=== PATIENT | female | born 1965 | race Caucasian/White ===

== ENCOUNTER 2020-10-07 10:14 | Outpatient (CLI) | payer OTHER, SELFPAY ==
--- NOTE | ~2020-10-07 | XR_ITS ---
XR chest 2V DATE: 10/07/2020 11:02 INDICATION: Hypertension. Back pain. TECHNIQUE: 2 views COMPARISON: 05/31/2015 PA and lateral chest FINDINGS: Normal heart size. No hilar or mediastinal enlargement. No pulmonary infiltrate or consolidation, pleural effusion or pulmonary vascular congestion or pneumo thorax. There is prominent thoracolumbar scoliosis. Status post cholecystectomy. IMPRESSION: No active cardiopulmonary disease Prominent thoracolumbar scoliosis Status post cholecystectomy Reviewed, dictated and finalized at location B.
== END 2020-10-07 10:15 | disposition home or self-care (01) ==
PROVIDERS: PCP Internal Medicine; Visit Provider Internal Medicine
DX: M54.9 Dorsalgia, unspecified (principal); I10 Essential (primary) hypertension
CPT/HCPCS: 71046

== ENCOUNTER 2021-01-09 02:06 | Day surgery (SDC) | payer OTHER, SELFPAY ==
[2020-12-29 10:41] VITALS: BMI 28.4
--- NOTE | 2021-01-06 18:24 | WPDANESEPPF ---
Anes - Initial Pre Proc Eval Procedure: Operation Date: 01/09/21 09:30 Proposed Procedures p Screening Colonoscopy - Ramón Chew MD Date/Time: 01/06/21 18:24 Surgeon: Ramón Chew MD Pre Op Diagnosis: neoplasm screening Patient Data Age: 55 Gender: F Height: 1.55 m Weight: 68.2 kg Allergies Allergy/AdvReac Type Severity Reaction Status Date / Time No Known Allergies Allergy Verified 01/09/21 08:41 Home Medications Medication Instructions Recorded Confirmed Type aspirin [Aspir-81] 81 mg PO DAILY 12/29/20 12/29/20 History estradiol-norethindrone acet 1 tablet PO DAILY 12/29/20 12/29/20 History spironolactone 25 mg PO DAILY 12/29/20 12/29/20 History Patient hx anesthesia problems: none Family hx anesthesia problems: none Results Review: All pre-operative results and documents have been reviewed as part of the pre-operative evaluation. [facility] Past Medical History Medical History (Updated 01/06/21 @ 18:25 by Ronen Amanda DO) Asthma Hypertension Surgical History Surgical History (Updated 01/06/21 @ 18:25 by Ronen Amanda DO) History of cholecystectomy History of tubal ligation Family History Family History (Updated 10/21/15 @ 23:19 by DOCTOR UNKNOWN) Mother Hypertension Cerebrovascular accident Family history of diabetes mellitus in first degree relative Family history of coronary artery disease Family history of heart disease in male family member before age 55 Sibling Hypertension Family history of elevated blood lipids Family history of diabetes mellitus in first degree relative Family history of coronary artery disease Other Diabetes mellitus Family history of cardiovascular disease Family history of malignant neoplasm Social History Social History Smoking packs per day: 0.5 Smoking cigarettes per day: 10.0 Years smoked: 25 Smoking pack-years: 12.50 Smoking status: Former smoker Tobacco type: cigarettes Alcohol intake: current Living arrangements: with family Spiritual care concerns: No Anes - Eval Final PreProcedure Day of Procedure 01/06/21 18:24 Patient weight: overweight Heart: regular rate and rhythm Lungs: clear to auscultation and normal air movement Airway: Mallampati scale class II Neurological: alert and oriented Last oral intake: >/= 8 hours ASA classification: III Emergent: no Anesthetic plan: proceed Anesthesia type and monitoring: general GIVS and standard monitoring Results Review: All pre-operative results and documents have been reviewed as part of the pre-operative evaluation. Informed Consent: The patient's anesthetic plan and its attendant risks and benefits were discussed with the patient/family/POA. Questions were solicited and answers provided to the satisfaction of the patient/family/POA.
[2021-01-09 08:43] VITALS: BP 130/82; PULSE 70; RESP 18; TEMP 36.7; O2SAT 100; BMI 29.7
--- NOTE | 2021-01-09 08:54 | PM.HPGS ---
History of Present Illness History of Present Illness Consent: Risks, benefits, and alternatives have been discussed and questions answered. Patient agrees to proceed with procedure. Chief complaint: neoplasm screening Narrative: Tita Javier is a 55 year old female Referred for colon cancer screening. Review of Systems Review of Systems: All systems reviewed & are unremarkable except as noted in HPI and below PMFSH Past Medical History Medical History Asthma Hypertension Surgical History Surgical History History of cholecystectomy History of tubal ligation Family History Family History Mother Hypertension Cerebrovascular accident Family history of diabetes mellitus in first degree relative Family history of coronary artery disease Family history of heart disease in male family member before age 55 Sibling Hypertension Family history of elevated blood lipids Family history of diabetes mellitus in first degree relative Family history of coronary artery disease Other Diabetes mellitus Family history of cardiovascular disease Family history of malignant neoplasm Social History Social History Smoking packs per day: 0.5 Smoking cigarettes per day: 10.0 Years smoked: 25 Smoking pack-years: 12.50 Smoking status: Former smoker Tobacco type: cigarettes Alcohol intake: current Living arrangements: with family Spiritual care concerns: No Meds Home Medications and Allergies Home Medications Medication Instructions Recorded Confirmed Type aspirin [Aspir-81] 81 mg PO DAILY 12/29/20 12/29/20 History estradiol-norethindrone acet 1 tablet PO DAILY 12/29/20 12/29/20 History spironolactone 25 mg PO DAILY 12/29/20 12/29/20 History Allergies Allergy/AdvReac Type Severity Reaction Status Date / Time No Known Allergies Allergy Verified 01/09/21 08:41 Vital Signs Vital Signs - 24 hr 01/09/21 08:43 Temperature 36.7 C Pulse Rate 70 Respiratory Rate 18 Blood Pressure 130/82 Pulse Oximetry 100 Exam Resp: Auscultation: clear to auscultation bilaterally Cardio: Rate: regular rate Rhythm: regular rhythm GI: GI Palp: Yes Soft to palpation and No Tenderness to palpation present (GI) Assessment and Plan Assessment and plan (1) Colon cancer screening: Code(s): Z12.11 - Encounter for screening for malignant neoplasm of colon Status: Acute Assessment and Plan: Colonoscopy with possible biopsy or polypectomy or cautery or injection of substances.
[2021-01-09] MEDS: LACTATED RINGERS 1,000 ML 150 ML IV CONT (08:55)
[2021-01-09 09:29] VITALS: BP 80/49; PULSE 72; RESP 21; O2SAT 100
[2021-01-09 09:39] VITALS: BP 103/70; PULSE 63; RESP 25; O2SAT 100
[2021-01-09 09:48] VITALS: BP 111/79; PULSE 58; RESP 23; O2SAT 100
== END 2021-01-09 09:52 | disposition home or self-care (01) ==
PROVIDERS: PCP Internal Medicine; Visit Provider Internal Medicine Gastroenterology
PROC: 0DJD8ZZ Inspection of Lower Intestinal Tract, Via Natural or Artificial Opening Endoscopic (ICD-10-PCS; CPT 45378; principal; 2021-01-09 09:30)
DX: Z12.11 Encounter for screening for malignant neoplasm of colon (principal); Z80.0 Family history of malignant neoplasm of digestive organs; K57.30 Diverticulosis of large intestine without perforation or abscess without bleeding; J45.909 Unspecified asthma, uncomplicated; I10 Essential (primary) hypertension; Z87.891 Personal history of nicotine dependence; Z79.82 Long term (current) use of aspirin
CPT/HCPCS: 45378; J2704; J7120

== ENCOUNTER 2021-08-21 13:40 | Emergency (ER) | payer OTHER, SELFPAY ==
[2021-08-21] VITALS (7 sets, daily range): BP systolic 135–183; BP diastolic 89–103; PULSE 88–128; RESP 16–29; TEMP 36.1; O2SAT 95–100
--- NOTE | ~2021-08-21 | XR_ITS ---
XR chest 1V portable DATE: 08/21/2021 14:08 INDICATION: Difficulty breathing, shortness of breath for 3 weeks. TECHNIQUE: Portable upright AP chest on 08/21/2021 at 1405 hours COMPARISON: 10/07/2020 PA and lateral chest FINDINGS: Normal heart size. Is mild aortic tortuosity. No pulmonary infiltrate or consolidation, pleural effusion or pulmonary vascular congestion or pneumo thorax is detected. Prominent reverse S shaped thoracolumbar scoliosis. Status post cholecystectomy. IMPRESSION: No active cardiopulmonary disease Reviewed, dictated and finalized at location A.
--- NOTE | ~2021-08-21 | CT_ITS ---
EXAMINATION: CTA chest PE protocol DATE: 08/21/2021 15:09 CDT INDICATION: Dyspnea. Status post long travel. TECHNIQUE: Computed tomographic angiography (CTA) of the chest was performed with 100 mL Omnipaque-35 0 intravenous contrast. The dose-length product was 320.06 mGy-cm. Maximum intensity projection 3D-re constructions of the aorta and other arteries were constructed by the technologist on a separate work station. Automated exposure control and iterative reconstruction technique were employed. COMPARISON: CT dated 05/04/2015. FINDINGS: Study technically limited due to motion artifact and contrast bolus timing. No large centra l pulmonary embolism. Evaluation of the peripheral pulmonary arteries limited. No thoracic lymphadeno judith. No evidence for aortic aneurysm or dissection. No significant pleural or pericardial effusion. There is a 1.5 cm liver cyst right hepatic lobe. The spleen, pancreas, and visualized aspects of the kidneys are unremarkable. There are low-density bilateral adrenal masses, largest in the right kidne y measuring 3.3 cm with intermediate density measuring 38 Hounsfield units. This mass is measures 3.1 x 2.2 cm compared with 3 x 2 cm on 05/04/2015, likely benign adenoma given the lack of significant in terval change. There is dependent atelectasis. No focal airspace consolidation. No endobronchial lesi ons. No pneumothorax. There is scoliosis. No acute bone or joint abnormality. IMPRESSION: 1. No large central pulmonary embolism. Evaluation of peripheral pulmonary arteries limited by motion and contrast bolus timing. 2: Stable bilateral adrenal masses, likely benign adenomas. Reviewed, dictated and finalized at location A. IMPRESSION: 1. No large central pulmonary embolism. Evaluation of peripheral pulmonary dixie barbara limited by motion and contrast bolus timing. 2: Stable bilateral adrenal masses, likely benign adenomas.
--- NOTE | 2021-08-21 13:50 | ECG_ITS ---
Measurements Intervals [place] Rate: 102 P: 22 OR: 159 QRS: 16 QRSD: 73 T: 46 QT: 326 QTc: 426 Interpretive Statements SINUS TACHYCARDIA INCOMPLETE RIGHT BUNDLE BRANCH BLOCK DELAYED PRECORDIAL R/S TRANSITION MINIMAL Q WAVES- INFERIOR LEADS BASELINE ARTIFACT- I, II, III, AVR, AVL, AVF, V1-V6 BORDERLINE ECG Electronically Signed On 08-21-2021 14:13:36 CDT by Jayme Aquino D.O.
[2021-08-21] MEDS: ALBUTEROL SULFATE NEB 2.5 MG/3 ML INH 5 MG INHALATION ×3 (14:01→14:35)
[2021-08-21] MEDS: IPRATROPIUM BR 0.02% INH SOLN 0.5 MG/2.5 ML VIAL INHALATION ×3 (14:02→14:35)
[2021-08-21 14:09] LABS: Basophils Absolute Auto 0.1 K/mm3 (0.0-0.1); Basophils Percent Auto 1.6 % (0.2-1.2); Eosinophils Absolute Auto 0.9 K/mm3 (0-0.3); Hemoglobin 13.4 g/dL (12.0-15.0); Immature Granulocyte Absolute 0.06 K/mm3 (0.00-0.031); Immature Granulocyte Percent A 0.7 % (0-0.5); Lymphocytes Absolute Auto 1.09 K/mm3 (0.9-3.2); Mean Corpuscular HGB Conc 31.9 g/dl (32-36); Mean Corpuscular Hemoglobin 30.9 pg (26-34); Mean Corpuscular Volume 96.8 fl (80-100); Mean Platelet Volume 9.2 fl (7.4-10.4); Monocytes Absolute Auto 0.6 K/mm3 (0.1-0.6); Monocytes Percent Auto 7.2 % (2.6-8.5); Neutrophils Absolute Auto 5.6 K/mm3 (1.3-6.7); Neutrophils Percent Auto 66.5 % (45.5-73.1); Platelet Count Result 310 k/mm3 (150-375); Red Blood Count 4.34 M/mm3 (4.2-5.4); Red Cell Distribution Width 13.3 % (11.5-14.5); White Blood Count 8.4 K/mm3 (4.5-10.0)
[2021-08-21] MEDS: predniSONE 20 MG TABLET 40 MG PO (14:16)
[2021-08-21 14:20] LABS: Anion Gap 5 mmol/L (8-16); Blood Urea Nitrogen 12 mg/dL (7-17); Calcium 8.7 mg/dL (8.4-10.2); Carbon Dioxide 26 mmol/L (22-30); Chloride 106 mmol/L (98-107); Estimated CRCL calculation 67 ml/min; Estimated Glomerular Filt Rate > 60; Glucose 123 mg/dL (65-110); Potassium 4.2 mmol/L (3.4-5.0); Sodium 137 mmol/L (137-145)
[2021-08-21 14:22] LABS: D Dimer 0.69 ug/mL (<0.48)
[2021-08-21 14:31] LABS: NT Pro B Type Natriuretic Pept 24 pg/mL (5-100)
--- NOTE | 2021-08-21 15:11 | ED.SOB ---
HPI - SOB/Dyspnea General Chief Complaint: Shortness of Breath/Dyspnea Stated Complaint: SOB Time Seen by Provider: 08/21/21 13:52 History of Present Illness HPI Narrative: 56-year-old female states that for the past month, she seems to be having more difficulty breathing, she used to use an inhaler about once a year, but since a month ago, she has already gone through 2, it only gives her minimal relief, she states that the symptoms all seem to start after she took a long trip to [place]. She is also endorsing some swelling in both of her legs which also started around the time. Denies any chest pain, history of blood clots. Related Data Home Medications Medication Instructions Recorded Confirmed aspirin 81 mg tablet,delayed 81 mg PO DAILY 12/29/20 12/29/20 release estradiol-norethindrone acet 0.5 1 tablet PO DAILY 12/29/20 12/29/20 mg-0.1 mg tablet spironolactone 25 mg tablet 25 mg PO DAILY 12/29/20 12/29/20 Allergies Allergy/AdvReac Type Severity Reaction Status Date / Time No Known Allergies Allergy Verified 08/21/21 16:35 Review of Systems Review of Systems: CONST: No fever. HEENT: No sore throat C/V: No chest pain RESP: Cough and difficulty breathing GI: No abdominal pain : No dysuria. M/S: No joint pain; does have lower extremity edema SKIN: No rash. NEURO: [No headache or focal numbness or weakness] PSYCH: [No depression] [facility] Past Medical History Medical History Asthma Hypertension Surgical History Surgical History History of cholecystectomy History of tubal ligation Family History Family History Mother Hypertension Cerebrovascular accident Family history of diabetes mellitus in first degree relative Family history of coronary artery disease Family history of heart disease in male family member before age 55 Sibling Hypertension Family history of elevated blood lipids Family history of diabetes mellitus in first degree relative Family history of coronary artery disease Other Diabetes mellitus Family history of cardiovascular disease Family history of malignant neoplasm Social History Social History Smoking packs per day: 0.5 Smoking cigarettes per day: 10.0 Years smoked: 25 Smoking pack-years: 12.50 Smoking status: Former smoker Tobacco type: cigarettes Alcohol intake: current Spiritual care concerns: No Exam Narrative: EXAMINATION OF ORGAN SYSTEMS/BODY AREAS: Constitutional: Vital signs per nursing GENERAL: Sitting upright in bed, appears uncomfortable HEAD: Normal with no signs of head trauma. EYES: EOMI, conjunctiva normal ENT: Hearing grossly intact LUNGS: Tachypnea, diminished lung sounds with expiratory wheezing HEART: Tachycardic ABD: [Soft], nondistended EXT: Normal range of motion SKIN: [No rashes or lesions.] NEURO: [Alert and oriented x 3. No gross focal sensory or strength deficits.] PSYCH: Normal affect Course Vital Signs Vital signs: Vital Signs Temperature 96.9 F L 08/21/21 13:42 Pulse Rate 105 H 08/21/21 13:42 Respiratory Rate 16 08/21/21 13:42 Blood Pressure 155/99 H 08/21/21 13:42 Pulse Oximetry 97 08/21/21 13:42 Oxygen Delivery Room Air 08/21/21 13:42 Temperature 96.9 F L 08/21/21 13:42 Pulse Rate 110 H 08/21/21 16:59 Respiratory Rate 23 H 08/21/21 16:59 Blood Pressure 135/89 08/21/21 16:59 Pulse Oximetry 95 08/21/21 16:59 Oxygen Delivery Room Air 08/21/21 14:20 MDM - SOB/Dyspnea MDM Narrative Medical decision making narrative: 56-year-old female presenting with difficulty breathing, vitals notable for tachycardia, she is wheezing on exam, I suspect most likely bronchitis, however given her travel history I will obtain work-up for PE. This is negative, she is feeling
[2021-08-21] MEDS: AZITHROMYCIN 250 MG TABLET 500 MG PO (16:34)
== END 2021-08-21 17:03 | disposition home or self-care (01) ==
PROVIDERS: Emergency Provider Emergency Medicine; PCP Internal Medicine
DX: J40 Bronchitis, not specified as acute or chronic (principal); I10 Essential (primary) hypertension; Z87.891 Personal history of nicotine dependence
CPT/HCPCS: 36415; 71045; 71275; 80048; 83880; 85025; 85380; 93005; 94640; 99284; A9270; J7512; Q9967

== ENCOUNTER 2021-09-01 10:15 | Outpatient (CLI) | payer OTHER, SELFPAY | END 2021-09-01 10:16 | disposition home or self-care (01) | LOC: CHSCARD 10:17 | PROVIDERS: PCP Internal Medicine; Visit Provider Internal Medicine | DX: R06.00 Dyspnea, unspecified (principal) | CPT/HCPCS: 94060; 94726; 94729 ==

== ENCOUNTER 2021-09-19 08:27 | Outpatient (CLI) | payer OTHER, SELFPAY ==
--- NOTE | ~2021-09-19 | US_ITS ---
US abdomen complete DATE: 09/19/2021 09:09 INDICATION: Bilateral adrenal masses TECHNIQUE: Complete bilateral abdominal ultrasound examination COMPARISON: 05/31/2015 gallbladder ultrasound 08/21/2021 CT chest FINDINGS: The gallbladder is surgically absent. 2.1 x 1.8 x 1.6 cm right hepatic cyst. Normal hepatopedal portal venous flow direction. The common bile duct measures 5.4 mm, within normal limits. No pancreatic mass lesion is evident. The abdominal aorta is of normal caliber. The inferior vena cava is unremarkable. Normal splenic size. The pancreatic tail is obscured. The pancreas otherwise appears unremarkable. A 2.2 x 2.7 cm right adrenal mass. Approximately 7 x 10 mm left adrenal mass. IMPRESSION: Bilateral adrenal masses; if there is no known malignancy, these are most likely adrenal adenomas. 2.1 cm right hepatic cyst Status post cholecystectomy Reviewed, dictated and finalized at Location A. Reviewed, dictated and finalized at location B. IMPRESSION: Bilateral adrenal masses; if there is no known malignancy, these ar e most likely adrenal adenomas. 2.1 cm right hepatic cyst Status post cholecystectomy
== END 2021-09-19 08:28 | disposition home or self-care (01) ==
LOC: CHSIMG 08:28
PROVIDERS: PCP Internal Medicine; Visit Provider Internal Medicine
DX: E27.9 Disorder of adrenal gland, unspecified (principal)
CPT/HCPCS: 76700

== ENCOUNTER 2021-11-02 07:55 | Outpatient (CLI) | payer OTHER, SELFPAY ==
--- NOTE | 2021-11-02 08:13 | ECHO_ITS ---
Patient Info Name: Tita Javier Age: 56 years : 1965 Gender: Female Ht: 61 in Wt: 178 lbs BSA: 1.90 m2 HR: 81 bpm BP: 122 / 91 mmHg Technical Quality: Fair Exam Date: 11/02/2021 8:28 AM Exam Location: [facility] Pulmonary Patient Status: Outpatient Admit Date: 11/02/2021 Staff Ordering Physician: Jayme Aquino DO Road Packer Operator: Alla Head RDCS Attending Provider: Jayme Aquino DO Referring Physician: Miles CARMONA; Exam Type: CA echo doppler color flow Study Info Indications R06.09 - Other forms of dyspnea Complete two-dimensional, color flow and Doppler transthoracic echocardiogram is performed. Summary 1. Complete two-dimensional, color flow and Doppler transthoracic echocardiogram is performed. 2. Left ventricular chamber dimension is normal. 3. Left ventricular systolic function is normal, estimated at 60-65%. 4. The left ventricular diastolic function is grade I diastolic dysfunction. 5. E/e' 8 is minimally elevated. 6. Global longitudinal strain is normal at -18.3%. 7. No pulmonary hypertension, estimated pulmonary arterial systolic pressure is 25 mmHg. Left Ventricle E/e' 8 is minimally elevated. Global longitudinal strain is normal at -18.3%. Left ventricular chamber dimension is normal. Left ventricular systolic function is normal, estimated at 60-65%. The left ventricular diastolic function is grade I diastolic dysfunction. Right Ventricle Right ventricular systolic function is normal and with normal TAPSE 2.0 cm. Right ventricular chamber dimension is normal. Left Atria Left atrial chamber dimension is normal. Right Atria Right atrial chamber dimension is normal. Aortic Valve The aortic valve is trileaflet. There is no aortic valve stenosis. There is no aortic valve regurgitation. Pulmonic Valve There is no pulmonic regurgitation. Mitral Valve There is no mitral valve stenosis. There is no mitral valve regurgitation. Tricuspid Valve There is no tricuspid valve regurgitation. No pulmonary hypertension, estimated pulmonary arterial systolic pressure is 25 mmHg. Pericardium/Pleural There is no pericardial effusion. Inferior Vena Cava Normal inferior vena cava with >50% collapse upon inspiration consistent with normal right atrial pressure, 5 mmHg. Aorta The aortic root size at the sinus of Valsalva is normal. Left Ventricular Outflow Tract Name Value Normal LVOT 2D LVOT Diameter 1.9 cm LVOT Doppler LVOT Peak Gradient 3 mmHg LVOT Mean Gradient 2 mmHg LVOT VTI 16 cm LVOT VTI/AV VTI Ratio 0.9 LVOT Stroke Volume 45 ml LVOT CO 3.6 l/min LVOT CI 1.9 l/min/m2 Pulmonic Valve Name Value Normal RVOT Doppler
--- NOTE | 2021-11-02 08:14 | EST_ITS ---
Patient Info Name: Tita Javier Age: 56 years : 1965 Gender: Female Ht: 61 in Wt: 176 lbs BSA: 1.89 m2 HR: 83 bpm BP: 120 / 81 mmHg Heart Rhythm: Sinus Rhythm Exam Date: 11/02/2021 9:05 AM Exam Location: [facility] Stress Patient Status: Outpatient Admit Date: 11/02/2021 Staff Ordering Physician: Jayme Aquino DO Attending Provider: Jayme Aquino DO Exercise Technologist: Elizabeth Kulkarni CT Exercise Physician: Jayme Aquino DO Exam Type: CA stress test treadmill Study Info Indications R06.00 - Dyspnea, unspecified A treadmill exercise stress test was performed. Summary 1. 1. Negative Serge exercise stress test for ischemic ST changes by ECG criteria. 2. 2. Reduced functional capacity, achieving 6.8 METs of workload. 3. 3. Rapid HR response to exercise. 4. 4. Hypertensive response to exercise. 5. 5. Appropriate HR recovery at 1 minute post exercise. 6. 6. No imaging with stress testing. 7. 7. Patient informed of the above results. Protocol: Serge Stress ECG Details Stage: REST Duration (min): 1 min : 26 sec Speed (mph): 0.0 Grade (%): 0 HR (bpm): 86 SBP (mmHg): 120 DBP (mmHg): 81 METS: --- Stage: REST Duration (min): 3 min : 47 sec Speed (mph): 0.0 Grade (%): 0 HR (bpm): 86 SBP (mmHg): 120 DBP (mmHg): 81 METS: --- Stage: REST Duration (min): 12 min : 57 sec Speed (mph): 0.0 Grade (%): 0 HR (bpm): 86 SBP (mmHg): 120 DBP (mmHg): 81 METS: --- Stage: STAGE 1 Duration (min): 1 min : 0 sec Speed (mph): 1.7 Grade (%): 10 HR (bpm): 129 SBP (mmHg): 120 DBP (mmHg): 81 METS: --- Stage: STAGE 1 Duration (min): 2 min : 0 sec Speed (mph): 1.7 Grade (%): 10 HR (bpm): 146 SBP (mmHg): 120 DBP (mmHg): 81 METS: --- Stage: STAGE 1 Duration (min): 3 min : 0 sec Speed (mph): 1.7 Grade (%): 10 HR (bpm): 150 SBP (mmHg): 168 DBP (mmHg): 106 METS: --- Stage: STAGE 2 Duration (min): 1 min : 0 sec Speed (mph): 2.5 Grade (%): 12 HR (bpm): 164 SBP (mmHg): 180 DBP (mmHg): 107 METS: --- Stage: STAGE 2 Duration (min): 1 min : 10 sec Speed (mph): 2.5 Grade (%): 12 HR (bpm): 166 SBP (mmHg): 180 DBP (mmHg): 107 METS: --- Stage: RECOVERY Duration (min): 0 min : 49 sec Speed (mph): 0.0 Grade (%): 0 HR (bpm): 151 SBP (mmHg): 180 DBP (mmHg): 107 METS: --- Stage: RECOVERY Duration (min): 1 min : 49 sec Speed (mph): 0.0 Grade (%): 0 HR (bpm): 125 SBP (mmHg): 193 DBP (mmHg): 102 METS: --- Stage: RECOVERY Duration (min): 2 min : 49 sec Speed (mph): 0.0 Grade (%): 0 HR (bpm): 102 SBP (mmHg): 220 DBP (mmHg): 93 METS: --- Stage: RECOVERY Duration (min): 3 min : 49 sec Speed (mph): 0.0 Grade (%): 0 HR (bpm): 98 SBP (mmHg): 220 DBP (mmHg): 93 METS:
[2021-11-02 10:29] LABS: Cholesterol 199 mg/dL (0-200); HDL Direct 59 mg/dL; LDL Cholesterol Direct 115 mg/dL; Triglycerides 164 mg/dL (<150)
== END 2021-11-02 07:56 | disposition home or self-care (01) ==
PROVIDERS: PCP Internal Medicine; Visit Provider Internal Medicine Cardiovascular Disease
DX: I10 Essential (primary) hypertension (principal); R06.09 Other forms of dyspnea
CPT/HCPCS: 36415; 80061; 84443; 93017; 93306

== ENCOUNTER 2023-07-22 09:23 | Outpatient (CLI) | payer OTHER, SELFPAY ==
--- NOTE | ~2023-07-22 | US_ITS ---
US abdomen limited INDICATION: Persistent PROCEDURE: Realtime right upper abdominal ultrasound. COMPARISON: Comparison to multiple prior studies sequentially, with oldest reviewed study dated 11/21. FINDINGS: The pancreas is normal without focal mass or pancreatic ductal dilation. There is a 2.7 cm liver cyst. No focal hepatic mass. There is normal directional flow in the portal vein. Gallbladder is surgically absent. Common bile duct measures 6 mm. No sonographic Hudson's sign. The re is a right adrenal mass measuring 2.5 cm, stable, likely benign adenoma. IMPRESSION: 1: Liver cyst measuring 2.7 cm. 2: Status post cholecystectomy. 3: Stable 2.5 cm right adrenal mass, likely benign adenoma. Reviewed, dictated and finalized at location B.
== END 2023-07-22 09:24 | disposition home or self-care (01) ==
PROVIDERS: PCP Internal Medicine; Visit Provider Nurse Practitioner Family
DX: K76.89 Other specified diseases of liver (principal); E27.9 Disorder of adrenal gland, unspecified; Z90.49 Acquired absence of other specified parts of digestive tract
CPT/HCPCS: 76705

== ENCOUNTER 2023-07-31 07:27 | Day surgery (SDC) | payer OTHER, SELFPAY ==
[2023-07-15 15:17] VITALS: BMI 30.8
[2023-07-17 09:57] VITALS: BMI 29.0
[2023-07-31 07:59] VITALS: BP 125/93; PULSE 80; RESP 16; TEMP 36.4; O2SAT 99; BMI 29.3
[2023-07-31] MEDS: LACTATED RINGERS 1,000 ML 150 ML IV CONT (08:10)
--- NOTE | 2023-07-31 08:23 | WPDANESEPPF ---
Anes - Initial Pre Proc Eval Procedure: Operation Date: 07/31/23 10:00 Proposed Procedures p Flexible Sigmoidoscopy - Gigi Sultana MD Date/Time: 07/31/23 08:23 Surgeon: Gigi Sultana MD Pre Op Diagnosis: Diverticulosis of Intestine wo Perf. or Abscess Patient Data Age: 58 Gender: F Height: 1.57 m Weight: 72.8 kg Last Vital Signs Temp 36.4 C 07/31/23 07:59 Pulse 80 07/31/23 07:59 Resp 16 07/31/23 07:59 BP 125/93 H 07/31/23 07:59 Pulse Ox 99 07/31/23 07:59 O2 Del Method Room Air 07/31/23 07:59 Allergies Allergy/AdvReac Type Severity Reaction Status Date / Time No Known Allergies Allergy Verified 07/31/23 07:52 Home Medications Medication Instructions Recorded Confirmed Type albuterol sulfate 90 mcg/actuation 1 puff inhalation Q4H PRN 01/12/22 07/31/23 History aerosol inhaler Shortness Of Breath Or Wheezing budesonide-formoterol HFA 80 1 inh inhalation TID 07/13/22 07/31/23 History mcg-4.5 mcg/actuation aerosol inhaler (Symbicort) spironolactone 100 mg tablet 100 mg PO DAILY 07/13/22 07/31/23 History verapamil 180 mg tablet,extended 180 mg PO DAILY 07/13/22 07/31/23 History release Patient hx anesthesia problems: none Family hx anesthesia problems: none Results Review: All pre-operative results and documents have been reviewed as part of the pre-operative evaluation. [facility] Past Medical History Medical History Asthma Hypertension Surgical History Surgical History History of cholecystectomy History of tubal ligation Family History Family History Mother Hypertension Cerebrovascular accident Family history of diabetes mellitus in first degree relative Family history of coronary artery disease Family history of heart disease in male family member before age 55 Sibling Hypertension Family history of elevated blood lipids Family history of diabetes mellitus in first degree relative Family history of coronary artery disease Other Diabetes mellitus Family history of cardiovascular disease Family history of malignant neoplasm Social History Social History Smoking packs per day: 0.5 Smoking cigarettes per day: 10.0 Years smoked: 25 Smoking pack-years: 12.50 Smoking status: Never smoker Tobacco type: cigarettes Alcohol intake: current Substance use: never Substance use type: does not use Living arrangements: with family Spiritual care concerns: No Anes - Eval Final PreProcedure Day of Procedure 07/31/23 08:23 Patient weight: overweight Heart: regular rate and rhythm Lungs: clear to auscultation Airway: Mallampati scale class II Neurological: alert and oriented Last oral intake: >/= 8 hours ASA classification: III Emergent: no Anesthetic plan: proceed Anesthesia type and monitoring: general GIVS and standard monitoring Results Review: All pre-operative results and documents have been reviewed as part of the pre-operative evaluation. Informed Consent: The patient's anesthetic plan and its attendant risks and benefits were discussed with the patient/family/POA. Questions were solicited and answers provided to the satisfaction of the patient/family/POA.
--- NOTE | 2023-07-31 08:53 | PM.HPGS ---
History of Present Illness History of Present Illness Consent: Risks, benefits, and alternatives have been discussed and questions answered. Patient agrees to proceed with procedure. Chief complaint: Diverticulosis of Intestine wo Perf. or Abscess Narrative: Tita Javier is a 58 year old female presents for a flexible sigmoidoscopy. Patient has a family history of colon cancer. A colonoscopy performed December in revealed diverticulosis with no polyps. Patient recently experienced a bout of diverticulitis while traveling in [place]. Apparently CT scan imaging was performed and she was told to have evaluation to exclude cancer in this area. Patient's family history is significant that her father had colon cancer. Said her bowel habits are somewhat irregular. At present. She has had no recent bleeding. Her weight remains stable. She is referred scopic evaluation of her colon. Review of Systems Review of Systems: Systems noncontributory. All systems reviewed & are unremarkable except as noted in HPI and below PMFSH Past Medical History Medical History Asthma Hypertension Surgical History Surgical History History of cholecystectomy History of tubal ligation Family History Family History Mother Hypertension Cerebrovascular accident Family history of diabetes mellitus in first degree relative Family history of coronary artery disease Family history of heart disease in male family member before age 55 Sibling Hypertension Family history of elevated blood lipids Family history of diabetes mellitus in first degree relative Family history of coronary artery disease Other Diabetes mellitus Family history of cardiovascular disease Family history of malignant neoplasm Social History Social History Smoking packs per day: 0.5 Smoking cigarettes per day: 10.0 Years smoked: 25 Smoking pack-years: 12.50 Smoking status: Never smoker Tobacco type: cigarettes Alcohol intake: current Substance use: never Substance use type: does not use Living arrangements: with family Spiritual care concerns: No Meds Home Medications and Allergies Home Medications Medication Instructions Recorded Confirmed Type albuterol sulfate 90 mcg/actuation 1 puff inhalation Q4H PRN 01/12/22 07/31/23 History aerosol inhaler Shortness Of Breath Or Wheezing budesonide-formoterol HFA 80 1 inh inhalation TID 07/13/22 07/31/23 History mcg-4.5 mcg/actuation aerosol inhaler (Symbicort) spironolactone 100 mg tablet 100 mg PO DAILY 07/13/22 07/31/23 History verapamil 180 mg tablet,extended 180 mg PO DAILY 07/13/22 07/31/23 History release Allergies Allergy/AdvReac Type Severity Reaction Status Date / Time No Known Allergies Allergy Verified 07/31/23 07:52 Vital Signs Vital Signs - 24 hr 07/31/23 07:59 Temperature 97.6 F Pulse Rate 80 Respiratory Rate 16 Blood Pressure 125/93 H Pulse Oximetry 99 Oxygen Delivery Room Air Exam Narrative: Physical exam reveals patient to be alert. Vital signs stable. HEENT exam is unremarkable. Patient is anicteric. Lungs are clear to auscultation and to percussion is without murmur or extra sounds. Abdomen bowel sounds are present soft nontender with no organomegaly. Digital external rectal exam is normal. Assessment and Plan Assessment and plan (1) Diverticulitis: Code(s): K57.92 - Diverticulitis of intestine, part unspecified, without perforation or abscess without bleeding Status: Acute Assessment and Plan: Patient experience recent bout of diverticulitis. This is now resolved after antibiotics. Recommend high-fiber diet. Colonoscopy suggested after patient's recent ER visit will be evaluate
[2023-07-31 09:20] VITALS: BP 92/62; PULSE 80; RESP 15; O2SAT 96
[2023-07-31 09:30] VITALS: BP 110/73; PULSE 81; RESP 15; O2SAT 99
[2023-07-31 09:40] VITALS: BP 108/76; PULSE 72; RESP 16; O2SAT 99
--- NOTE | 2023-07-31 09:47 | WPDANESPN ---
Anes - Prog Note Post-Op Date/Time: 07/31/23 09:47 Cardiovascular status: normal Respiratory status: normal Airway patency: baseline Mental status: baseline Post-Op hydration status: normal Vital Signs: Last Vital Signs Temp 36.4 C 07/31/23 07:59 Pulse 72 07/31/23 09:40 Resp 16 07/31/23 09:40 BP 108/76 07/31/23 09:40 Pulse Ox 99 07/31/23 09:40 O2 Del Method Room Air 07/31/23 09:40 Pain Score (VAS): 0/10 I/O: Intake & Output 07/30/23 07/31/23 07/31/23 23:59 07:59 15:59 Intake Total 400 Balance 400 Patient Feedback: Patient satisfied with anesthetic care.
== END 2023-07-31 09:52 | disposition home or self-care (01) ==
PROVIDERS: PCP Internal Medicine; Visit Provider Internal Medicine Gastroenterology
PROC: 0DJD8ZZ Inspection of Lower Intestinal Tract, Via Natural or Artificial Opening Endoscopic (ICD-10-PCS; CPT 45330; principal; 2023-07-31 10:00)
DX: Z80.0 Family history of malignant neoplasm of digestive organs (principal); D12.5 Benign neoplasm of sigmoid colon; K57.30 Diverticulosis of large intestine without perforation or abscess without bleeding
CPT/HCPCS: 45338

== ENCOUNTER 2023-07-31 10:02 | Outpatient (NON) | payer OTHER, SELFPAY | END 2023-07-31 10:03 | disposition home or self-care (01) | PROVIDERS: PCP Internal Medicine; Visit Provider Internal Medicine Gastroenterology | DX: Z12.11 Encounter for screening for malignant neoplasm of colon (principal) | CPT/HCPCS: 88305 ==